=== PATIENT | female | born 1940 | race Hispanic/Latino ===

== ENCOUNTER → 2017-10-06 | Outpatient (CLI) | payer MEDICARE, OTHER ==
--- NOTE | 2017-10-06 10:30 | Diagnostic Imaging Report ---
Exam: Brain MRI without IV contrast History: Dizziness, posterior headache Comparison studies: None Technique: Sagittal and axial T2 FS, axial data BE I, axial T1 FLAIR and axial T2*GRE and axial coronal T2 FLAIR. Intravenous contrast: None Findings: Scalp: Normal in signal . No masses . Bone marrow: Normal in signal intensity. Brain sulci: Appropriate for age. Ventricles: Normal in size . No hydrocephalus . Parenchyma: No mass, hemorrhage or acute ischemia. A few scattered T2 FLAIR hyperintense foci in the supratentorial white matter are nonspecific but most compatible with chronic small vessel ischemic changes. Suprasellar region: No abnormalities. Craniocervical junction: Patent foramen magnum. No Chiari malformation. Vessels: Normal flow-voids in the arteries and sinuses. Incidental findings: Minimal nonspecific reactive T2 hyperintense changes in the mastoid tips. Disc osteophyte complexes at C3-C4 and at C4-C5 indent the thecal sac (cannot adequately evaluate the spinal canal due to artifacts in this location on this exam tailored to evaluate the brain). IMPRESSION: 1. Mild supratentorial chronic microvascular ischemic changes. 2. No additional intracranial abnormalities. Signed by: Dr. Ronaldo Arnett M.D. on 10/06/2017 10:26 AM
== END ==
LOC: MRI 08:44
PROVIDERS: ATTEND Specialist
DX: R42 Dizziness and giddiness (principal)
CPT/HCPCS: 70551